=== PATIENT | male | born 1995 | race Caucasian/White ===

== ENCOUNTER 2017-05-26 21:19 | Emergency (ER) | payer MEDICAID, SELFPAY ==
[2017-05-26 21:19] VITALS: BP 149/74; PULSE 121; RESP 20; TEMP 36.7; O2SAT 98; BMI 24.0
--- NOTE | 2017-05-26 21:25 | NURSING ---
RN CALLED FOR EKG, PULLED OLD EKG'S FOR
[2017-05-26 21:36] VITALS: BP 162/95; PULSE 105; RESP 14; O2SAT 97
--- NOTE | 2017-05-26 21:47 | ED.DCSUM_ITS ---
- ER Visit Summary Date of Service: 05/26/17 Chief Complaint: Palpitations History of Present Illness: The patient is a 21 M [employer] student no senior past medical history other than ADHD. He has been currently being worked up for palpitations. He has a pending echo in June. He seen cardiology. He has been evaluated by his primary care physician had a 24 hour and a 30 day monitor without any specific abnormality. Patient states he was sent in his dorm room tonight when he felt anxious. Thought his heart began racing. Denied chest pain. He did not pass out. He has had symptoms like this before. Denies any leg pain or swelling. No recent travel or surgery. No mobilization. No leg pain or swelling. Physical Examination: Well-appearing young male. Vital signs are stable. He is afebrile. He does not look septic or toxic. His pulse ox is 90% on room air no signs of hypoxia. HEENT exam unremarkable. Neck nontender no lymphadenopathy. Trachea midline. Lungs clear to auscultation bilaterally. Heart regular rhythm no murmur. Abdomen is soft nontender. He is moving all 4 extremities. Neurovascular intact. Calves nontender without edema or cords. Neurologically is awake and alert he has no focal motor deficits he does seem somewhat anxious. Test Results: EKG shows sinus rhythm rate of 113. Unchanged from an EKG from 1 month ago. Emergency Department Course and Treatment: Patient's history and exam are consistent with anxiety. I do not think it is underlying cardiac disorder. Given 1 p.o. Ativan here and discharged to home. Treatment Plan: [] Disposition: discharge Impression: Acute anxiety Acute palpitations of uncertain etiology This note was generated with [employer] Only dictation software. It may contain incorrect words, spelling, and punctuation that were not noted in review of the chart prior to signing ED Disposition - Plan for ED Patient: Chief Complaint: Palpitations Referrals: Care Physician,No Primary [Primary Care Provider] -
--- NOTE | 2017-05-26 21:47 | ED.DEP ---
ED Disposition - Plan for ED Patient: Disposition: Home or Assisted Living Chief Complaint: Palpitations Instructions: ED Palpitations, ED Panic Attack Referrals: Care Physician,No Primary [Primary Care Provider] - Additional Instructions: Benadryl as needed for anxiety. Call follow-up your primary care physician. You have a normal exam tonight. I suspect this is secondary to anxiety and not an underlying heart issue.
[2017-05-26] MEDS: LORazepam 1 MG Tablet PO (21:56)
[2017-05-26 22:00] VITALS: BP 160/76; PULSE 82; RESP 14; O2SAT 100
--- NOTE | 2017-05-26 22:00 | ED.RN ---
THIS NURSE REVIEWED D/C INSTRUCTIONS WITH PT. PT VERBALIZED UNDERSTANDING OF INSTRUCTIONS. PT DENIES FURTHER NEEDS OR QUESTIONS AT THIS TIME.
--- NOTE | 2017-05-26 22:36 | EKG12_ITS ---
Test Reason : PALPITATIONS Blood Pressure : / mmHG Vent. Rate : 113 BPM Atrial Rate : 113 BPM P-R Int : 134 ms QRS Dur : 110 ms QT Int : 334 ms P-R-T Axes : 072 080 046 degrees QTc Int : 458 ms Sinus tachycardia Otherwise normal ECG Confirmed by NATALIYA ACOSTA, STACY ([id number]), production editor ABILIO FUENTES ([id number] on 05/29/2017 1:45:41 PM Referred By: DR QUIROGA Confirmed By:STACY AN MD
== END 2017-05-26 22:00 | disposition home or self-care (01) ==
PROVIDERS: Emergency Provider Emergency Medicine
DX: F41.9 Anxiety disorder, unspecified (principal); R00.2 Palpitations; Z72.0 Tobacco use; F90.9 Attention-deficit hyperactivity disorder, unspecified type
CPT/HCPCS: 93005; 99283

== ENCOUNTER → 2017-07-04 15:14 | Outpatient (CLI) | payer MEDICAID, SELFPAY ==
[2017-07-12 09:37] LABS: Epinephrine, Pl 68 pg/mL (0-62); Norepinephrine, Pl 211 pg/mL (0-874)
[2017-07-12 11:16] LABS: Dopamine, Pl <30 pg/mL (0-48)
== END ==
PROVIDERS: Visit Provider Internal Medicine Cardiovascular Disease
DX: R23.2 Flushing (principal)
CPT/HCPCS: 36415; 82384

== ENCOUNTER → 2017-07-05 16:07 | Outpatient (CLI) | payer MEDICAID, SELFPAY ==
[2017-07-10 20:08] LABS: Dopamine, UR 111 ug/L (Undefined); Epinephrine, 24Ur 26 ug/24 hr (0-20); Epinephrine, Ur 11 ug/L (Undefined); Norepinephrine, 24Ur 41 ug/24 hr (0-135); Norepinephrine, Ur 17 ug/L (Undefined); VMA, UR 1.6 mg/L (Undefined)
[2017-07-11 08:20] LABS: Dopamine, 24Ur 266 ug/24 hr (0-510); VMA, 24UR 3.8 mg/24 hr (0.0-7.5)
== END ==
PROVIDERS: Visit Provider Internal Medicine Cardiovascular Disease
DX: R23.2 Flushing (principal)
CPT/HCPCS: 81050; 82384; 84585

== ENCOUNTER 2018-08-02 18:10 | Emergency (ER) | payer MEDICAID, SELFPAY ==
[2018-07-09 14:14] VITALS: BMI 25.6
[2018-08-02 18:12] VITALS: BP 135/91; PULSE 99; RESP 16; TEMP 36.8; O2SAT 98; BMI 25.9
--- NOTE | 2018-08-02 19:20 | CT_ITS ---
STUDY: CT ABDOMEN AND PELVIS WITH CONTRAST REASON FOR EXAM: Male, 23 years old. Right lower quadrant pain RADIATION DOSAGE (If Supplied By Facility): CTDIvol = ( 13.16 ) mGy, DLP = ( 842.07 ) mGycm TECHNIQUE: Transaxial images were obtained from the dome of the diaphragm to the symphysis pubis without oral contrast. 100 IV Isovue 300 was administered. Sagittal and coronal images were reconstructed. Individualized dose optimization techniques were used for this CT. COMPARISON: None. FINDINGS: The visualized lung bases are unremarkable. The visualized portions of the heart are within normal limits. Normal liver. Normal gallbladder and extrahepatic biliary system. Normal spleen. Normal pancreas. Normal bilateral adrenal glands. Normal right kidney. Normal left kidney. Normal visualized stomach. Normal small intestine. Normal colon. The appendix is visualized and appears normal. Normal abdominal aorta. Normal inferior vena cava. Normal retroperitoneum. Normal urinary bladder. Normal abdominal wall. Normal osseous structures. CT/Abdomen/Pelvis W IV Cont ONLY IMPRESSION: No CT evidence of acute abdominopelvic pathology. No evidence of appendicitis, acute intestinal pathology, or acute obstructive uropathy. Electronically Signed: Yuri Rodrigues MD at 20:23 EDT Tel , Service support ,
--- NOTE | 2018-08-02 19:21 | ED.VIS.GEN ---
History of Present Illness Chief Complaint: Abd Pain Informant: Patient Onset: Days - 2 Context: Gradual Onset Timing: Continuous Quality: ache Location: RLQ Current Severity: Moderate Maximum Severity: Moderate Worsened by: bumps in road during car ride today Relieved by: nothing Associated Symptoms: nausea. chills. anorexia. Narrative: Patient had intermittent right lower quadrant pain for the past 2 days, more consistent and worsening over the course of the day today. Not colicky. Does not radiate into the back, he states it started more laterally and if it migrated at all, it was a little more medially but he points to the area of McBurney's point is the area that is bothering him now. Nausea no vomiting. Had a loose stool yesterday but normal bowel movement since. No urinary symptoms. Never had this before. No history of any abdominal surgeries or other medical problems. Denies drug use. Past Medical History - Allergies and Home Meds Allergies/Adverse Reactions: Allergies No Known Allergies Allergy (Verified 08/02/18 18:15) Primary Care Physician: [facility] Doctor,Out of [NON-STAFF] - Past Medical History: None Surgical History: no surgical history Lives: Alone Smoking Status: Former smoker Drugs: None Review of Systems General: Reports: Chills. Denies: Fever, Sweats Eyes: Denies: Visual changes - bilaterally, Diplopia ENT: Denies: Rhinorrhea, Sore throat Cardiovascular: Denies: Chest pain, Palpitations Respiratory: Denies: Dyspnea, Cough, Dyspnea on exertion Gastrointestinal: Reports: Abdominal pain, Nausea. Denies: Vomiting, Diarrhea, Melena, Hematochezia Genitourinary: Denies: Dysuria, Hematuria, Frequency Musculoskeletal: Reports: Back pain - occ unrelated back spasms chronically. Denies: Extremity Pain Skin: Denies: Rash, Wounds Neurological: Denies: Headache, Weakness, Numbness Physical Exam Vital Signs/Narrative: Vital Signs Temp Pulse Resp BP Pulse Ox 08/02/18 18:12 98.3 F 99 16 135/91 H 98 Inital Vital Signs reviewed: Yes General: Well nourished, Well developed, No Acute Distress Head: Normocephalic, Atraumatic Eyes: Perrl, EOMI ENT: Moist mucous membranes, No rhinorrhea Neck: Supple, Nontender Cardiovascular: Regular rate, Regular rhythm, No murmurs Respiratory: No distress, CTA bilaterally, Chest nontender Abdomen: Soft, Nondistended, Normal bowel sounds, Tender - McBurney's pt, Psoas sign. Negative for: Guarding, Rebound tenderness, Mass, Inguinal hernia, Obturator sign, Rovsig's sign, Bradshaw's sign Back: Nontender, Normal Inspection, CVA tenderness - mild right Extremities: Nontender, No edema Skin: Normal color, No rash Neurological: Alert, Oriented x3, Cranial nerves II-XII grossly intact, Normal Strength, Normal Sensation Psychological: Normal affect, Normal Mood Diagnostic/Tx/Re-eval Impressions Abdomen/Pelvis CT 08/02/18 19:20 IMPRESSION: No CT evidence of acute abdominopelvic pathology. No evidence of appendicitis, acute intestinal pathology, or acute obstructive uropathy. Electronically Signed: Yuri Rodrigues MD at 20:23 EDT Tel , Service support , 08/02/18 19:20 Abdomen/Pelvis W IV Cont ONLY [CT] Stat Laboratory Results 08/02/18 08/02/18 08/02/18 18:25 19:30 19:30 WBC 6.3 RBC 5.01 Hgb 15.3 Hct 43.7 MCV 87.2 MCH 30.5 MCHC 35.0 RDW 12.4 RDW Differential 39.4 Plt Count 178 MPV 8.7 Immature Gran % (Auto) 0.200 Neut % (Auto) 70.7 H Lymph % (Auto) 20.1 [place] % (Auto) 8.5 Eos % (Auto) 0.5 Baso % (Auto) 0.0 Absolute Neuts (auto) 4.5 Absolute Lymphs (auto) 1.27 Total Counted Not Reportable Sodium 141 Potassium 3.8 Chloride 102 Carbon Dioxide 31.0 Anion Gap 8 BUN 14 Creatinine 1.13 Estim Creat Clear Calc 122.55 Est GFR (MDRD) Af Amer 104 Est GFR (MDRD) Non-Af 86 BUN/Creatinine Ratio 12.4 Glucose 90 Calcium 9.3 Urine Color Yellow Urine Clarity Clear Urine pH 7.0 Ur Specific [place] 1.005 Urine Protein Negative Urine Glucose (UA) Normal Urine Ketones Negative Urine Occult Blood Negative Urine Nitrite Negative Urine Bilirubin Negative Urine Urobilinogen Normal Ur Leukocyte Esterase Negative Urine RBC 0 SEEN Urine WBC 0 SEEN Ur Squamous Epith Cells 0 SEEN Urine Bacteria 0 SEEN Urine Mucus 0 SEEN - Medical Decision Making Work-up is unremarkable, specifically white blood count is normal and CT shows no evidence of appendicitis or other acute intra-abdominal pathology. He was reassured and given a prescription for Bentyl and Naprosyn to use for pain, Zofran for nausea. Improved on treatment here. ED Disposition - Plan for ED Patient: Disposition: Home or Assisted Living Diagnosis: Right lower quadrant abdominal pain Instructions: ED Flank Pain Uncertain Cause Prescriptions: Dicyclomine HCl [Bentyl] 20 mg PO Q6H PRN PRN #12 capsule PRN Reason: abdominal pain Ondansetron [Zofran] 8 mg PO Q8H PRN PRN #12 tablet PRN Reason: Nausea Naproxen [Naprosyn] 500 mg PO BID PRN #20 tablet Referrals: [facility] Doctor,Out of [NON-STAFF] - 3-5 Days if not improving
[2018-08-02] MEDS: 0.9% Normal Saline 1,000 ML 1000 ML IV (19:30)
[2018-08-02] MEDS: Ondansetron 4 MG/2 ML Vial IV (19:31)
[2018-08-02 19:37] LABS: Bacteria 0 SEEN /hpf (None Seen); Mucous, Urine 0 SEEN /hpf (<or=2+); Red Blood Cells-Urine 0 SEEN /hpf (0-5); Squamous Epithelial Cells - UA 0 SEEN /hpf (0-5); White Blood Cells 0 SEEN /hpf (0-5)
[2018-08-02 19:38] LABS: Color, Urine Yellow (Yellow); Glucose, Dipstick Normal (Normal); Ketone-Dipstick Negative (Negative); Leukocyte Esterase-Dipstick Negative /ul (Negative); Nitrite-Dipstick Negative (Negative); Occult Blood-Urine Negative /ul (Negative); Protein-Dipstick Negative (Negative); Specific Gravity, Urine 1.005 (1.002-1.030); Urine Bilirubin Dipstick Negative (Negative); Urine Clarity Clear (Clear); Urine Urobilinogen Normal (Normal)
[2018-08-02 19:41] LABS: Absolute Lymphocyte Count 1.27 X10^3/ul (0.83-4.51); Absolute Neutrophil Count 4.5 X10^3/uL (2.0-7.7); Eosinophil# 0.03 X10^3/uL; Eosinophils% 0.5 % (0-5); Hematocrit 43.7 % (40-54); Hemoglobin 15.3 g/dl (13.0-16.5); Lymphocyte # 1.27 X10^3/ul (4.0); Lymphocyte % 20.1 % (19-41); Mean Corpuscular Hgb 30.5 pg (27.0-32.0); Mean Corpuscular Volume 87.2 fL (80-94); Mean Platelet Vol. 8.7 fl (6.2-12.0); Monocyte# 0.54 X10^3/uL; Monocyte% 8.5 % (0-10); Neutrophil # 4.47 X10^3/uL (2.7-7.7); Neutrophil % 70.7 % (47-70); POSITIVE COUNT NO; POSITIVE DIFFERENTIAL NO; POSITIVE MORPHOLOGY NO; Platelet Count 178 K/mm3 (150-450); RBC Distribution Width CV 12.4 % (11.6-14.6); RBC Distribution Width SD 39.4 fl (35.1-43.9); Red Blood Count 5.01 M/mm3 (4.6-6.2); White Blood Count 6.3 K/mm3 (4.4-11.0)
[2018-08-02 19:53] LABS: Anion Gap 8 (5-15); BUN 14 mg/dL (7-18); BUN/Creat Ratio 12.4 RATIO (10-20); Calcium,Total 9.3 mg/dL (8.5-10.1); Chloride 102 mmol/L (98-107); Creatinine, Serum 1.13 mg/dL (0.70-1.30); EST Glomerular Filtration Rate 86 mL/min (>60); Est Glom Filt Rate - Afr Amer 104 mL/min (>60); Estimated Creatinine Clearance 122.55 ml/min; Glucose 90 mg/dL (74-106); Potassium 3.8 mmol/L (3.5-5.1); Sodium Level 141 mmol/L (136-145)
[2018-08-02 20:53] VITALS: RESP 16
[2018-08-02] MEDS: Dicyclomine 10 MG Capsule 20 MG PO (21:26)
[2018-08-02] MEDS: Ketorolac 30 MG/ML Syringe IV (21:26)
[2018-08-02 21:30] VITALS: RESP 16
== END 2018-08-02 21:32 | disposition home or self-care (01) ==
PROVIDERS: Emergency Provider Emergency Medicine; Family Provider Family Medicine; PCP Family Medicine
DX: R10.31 Right lower quadrant pain (principal); Z87.891 Personal history of nicotine dependence
CPT/HCPCS: 74177; 80048; 81001; 85025; 99284; J7030; Q9967; J2405